=== PATIENT | female | born 1985 | race Two or more races ===

== ENCOUNTER 2024-04-08 13:31 | Outpatient (CLI) | payer OTHER ==
[~2024-04-08 13:31] MED LIST: NAPR500T14 PO; PRENATAL CAPLE1 EAC1
== END 2024-04-08 13:33 | disposition home or self-care (01) ==
LOC: PRENATAL 13:31
PROVIDERS: ATTEND Obstetrics & Gynecology Maternal & Fetal Medicine
DX: O44.00 Complete placenta previa NOS or without hemorrhage, unspecified trimester (principal); O09.529 Supervision of elderly multigravida, unspecified trimester; Z3A.20 20 weeks gestation of pregnancy

== ENCOUNTER 2024-07-06 08:51 | Outpatient (CLI) | payer OTHER | END 2024-07-06 08:54 | disposition home or self-care (01) | LOC: PRENATAL 08:51 | PROVIDERS: ATTEND Obstetrics & Gynecology Maternal & Fetal Medicine | DX: O26.843 Uterine size-date discrepancy, third trimester (principal); O36.8130 Decreased fetal movements, third trimester, not applicable or unspecified; O09.523 Supervision of elderly multigravida, third trimester; O99.013 Anemia complicating pregnancy, third trimester; Z3A.33 33 weeks gestation of pregnancy ==

== ENCOUNTER 2024-08-18 18:09 | Inpatient (IN) | payer OTHER ==
[~2024-08-18] VITALS: Ht 165.1 cm; Wt 78.9 kg
[2024-08-18 18:06] VITALS: BP 127/84
[2024-08-18] MEDS ORDERED: IRON236 MG PO (18:25)
[2024-08-18] MEDS ORDERED: RINGERS SOLUTION,LACTATED 1,000 ML IV SCH (18:30)
[2024-08-18 18:48] LABS: PH,URINE 5.5 (5.0-8.0); URINE APPEARANCE Clear; URINE BILIRRUBIN Negative (NEGATIVE); URINE BLOOD Negative; URINE COLOR Yellow; URINE GLUCOSE Negative (NEGATIVE); URINE KETONE Negative (NEGATIVE); URINE LEUKOCYTE Negative; URINE NITRATE Negative; URINE PROTEIN 30 (NEGATIVE); URINE UROBILINOGEN 0.2 E.U./dl
[2024-08-18 18:50] LABS: HEMATOCRIT 34.3 % (36.0-45.00); HEMOGLOBIN 11.4 g/dL (12.0-15.00); MEAN CELL VOLUME 83.5 fL (80.00-100.00); MEAN CORPUSCULAR HEMOGLOBIN 27.6 pg (27.00-32.0); MEAN CORPUSCULAR HGB CONC 33.1 g/dl (32.0-36.0); PLATELET COUNT 220 K/uL (150-450); RED BLOOD COUNT 4.11 M/uL (4.00-6.00)
[2024-08-18 18:51] LABS: URINE BACTERIA 179.8 uL (0.0-1933); URINE EPITHELIAL CELLS 12.3 uL (0.0-38.8); URINE WBC 4.7 uL (0.0-23.2)
[2024-08-18 18:55] LABS: RED CELL DISTRIBUTION WIDTH 17.4 % (11.5-14.5)
[2024-08-18 19:19] LABS: ALBUMIN 2.6 gm/dL (3.4-5.0); BILIRUBIN TOTAL 0.23 mg/dL (0.3-1.2); CALCIUM 9.2 mg/dL (8.5-10.1); CREATININE SERUM 0.56 mg/dL (0.55-1.02); GFR 121.81; GLOBULINA 3.6 G/DL (2.4-3.5); POTASSIUM 3.99 mEq/L (3.5-5.1); TOTAL PROTEIN 6.2 gm/dL (6.4-8.2)
[2024-08-18 19:29] LABS: INR < 0.93; PARTIAL THROMBOPLASTIN TIME 26.1 SECONDS (22.0-34.0)
[2024-08-18 19:52] LABS: URINE CAST 0.58 uL (0.0-1.40)
[2024-08-18] MEDS ORDERED: PROMETHAZINE HCL 25 MG/ML AMPUL IV ONE (21:15)
[2024-08-18] MEDS ORDERED: MEPERIDINE HCL/PF 25 MG/ML VIAL IV ONE (21:15)
[2024-08-18 21:17] VITALS: BP 122/71
[2024-08-18] MEDS ORDERED: OXYTOCIN 500 ML IV SCH (22:00)
[2024-08-18] MEDS ORDERED: OXYTOCIN 1,000 ML IV SCH (23:45)
[2024-08-18] MEDS ORDERED: IBUprofen 400 MG TABLET PO PRN (23:45)
[2024-08-18] MEDS ORDERED: CHLORHEXIDINE GLUCONATE 120 ML BOTTLE TOP SCH (23:45)
[2024-08-19 01:40] VITALS: BP 108/65
[2024-08-19 08:34] VITALS: BP 100/60
[2024-08-19 16:20] VITALS: BP 123/72
[2024-08-20] VITALS: BP 112/73
[2024-08-20] MEDS ORDERED: IBUPROFEN400 MG PO (08:40)
[2024-08-20 08:53] VITALS: BP 105/66
== END 2024-08-20 12:03 | disposition home or self-care (01) | DRG 807 ==
LOC: OB/GYN 18:09 → LDR 18:09 → OB/GYN 08-19 01:08
PROVIDERS: ADMIT Obstetrics & Gynecology; ATTEND Obstetrics & Gynecology
PROC: 10E0XZZ Delivery of Products of Conception, External Approach (ICD-10-PCS; principal; 2024-08-18)
PROC: 0HQ9XZZ Repair Perineum Skin, External Approach (ICD-10-PCS; 2024-08-18)
PROC: 4A1HXCZ Monitoring of Products of Conception, Cardiac Rate, External Approach (ICD-10-PCS; 2024-08-18)
DX: O70.0 First degree perineal laceration during delivery (principal); Z37.0 Single live birth; Z3A.38 38 weeks gestation of pregnancy